=== PATIENT | female | born 1980 | race African-American/Black ===

== ENCOUNTER 2019-01-15 06:59 | Day surgery (SDC) | payer OTHER ==
[2019-01-14 14:54] VITALS: BMI 45.7
[2019-01-15 08:28] VITALS: TEMP 97.9
[2019-01-15 14:56] VITALS: BP 128/80; PULSE 88
--- NOTE | 2019-01-16 17:58 | PATH ---
Surgical Pathology Report Patient Name: WILLIS CARVAJAL [facility]. Rec. #: [id number] /Age/Gender: 1980 (Age: 38) / F Account: [id number] Location: U-ENDOSCOPY Taken: 01/15/2019 Received: 01/15/2019 Reported: 01/16/2019 Physicians: Dl Tadeo M.D. Specimen(s) Received BODY AND ANTRUM Clinical History Morbid obesity Postoperative diagnosis: Normal EGD Final Diagnosis STOMACH, BODY AND ANTRUM, BIOPSY: GASTRIC ANTRAL AND BODY MUCOSA WITH SEVERE CHRONIC ACTIVE GASTRITIS. IMMUNOHISTOCHEMICAL STAIN FOR H. PYLORI IS POSITIVE (NUMEROUS). Electronically Signed Jeannette Coker M.D. Gross Description Received in formalin, labeled "biopsy body and antrum" are 4 cabrera, irregular portions of soft tissue ranging from 0.2-0.6 cm. in greatest dimension. The specimens are submitted in toto in one cassette. 01/15/2019 saudi01/15/2019
== END 2019-01-15 09:15 | disposition home or self-care (01) ==
LOC: JASU-ENDO 06:59
PROVIDERS: ATTEND Internal Medicine Gastroenterology
PROC: 0DB68ZX Excision of Stomach, Via Natural or Artificial Opening Endoscopic, Diagnostic (ICD-10-PCS; principal; 2019-01-15 08:00)
DX: Z01.818 Encounter for other preprocedural examination (principal); E66.01 Morbid (severe) obesity due to excess calories
CPT/HCPCS: 84703; 88305-TC; 88342-TC